=== PATIENT | female | born 1975 | race Caucasian/White ===

== ENCOUNTER 2017-01-11 09:33 | Emergency (ER) | payer OTHER ==
[2017-01-11 09:47] VITALS: RESP 18; TEMP 98
[2017-01-11 09:56] LABS: COLOR YELLOW; LEUKOCYTE ESTERASE,URINE 2+ (NEGATIVE); NITRITE,URINE NEGATIVE (NEGATIVE)
[2017-01-11 10:08] LABS: BACTERIA 1+ /hpf (NONE SEEN); RBC,URINE >182 /hpf (0-3); WBC,URINE >182 /hpf (0-3)
[2017-01-11] MEDS ORDERED: ONDANSETRON 4 MG/2 ML VIAL IVP ONE (10:24)
[2017-01-11] MEDS ORDERED: NS 1,000 ML IV ONE (10:24)
[2017-01-11] MEDS ORDERED: fentaNYL 100 MCG/2 ML INJ IVP ONE (10:24)
--- NOTE | 2017-01-11 10:24 | EDPHY ---
H & P Stated Complaint: c/o UTI s/S since thur- today Rt sided flank pain Time Seen by Provider: 01/11/17 09:58 HPI/ROS: CHIEF COMPLAINT: Flank pain and urinary symptoms HISTORY OF PRESENT ILLNESS: 41-year-old female with history of kidney stones presents reporting that she has been feeling unwell for about a week. She has had pain in her right flank as well as chills and some nausea. 2 days ago the patient developed discomfort when she urinates. Patient has had no radiation of her flank pain into the groin or lower abdomen. No documented fever. No noted hematuria. Nausea but no vomiting. No cold or cough symptoms. No diarrhea. No headache or lightheadedness. REVIEW OF SYSTEMS: Aside from elements discussed in the HPI, a comprehensive 10-point review of systems was reviewed and is negative. PAST MEDICAL HISTORY: Kidney stones, endometrial ablation, chronic hoarse voice secondary to vocal cord dysfunction SOCIAL HISTORY: Nonsmoker. . VITAL SIGNS Reviewed by me. GENERAL: Well-developed, well-nourished, restless in the bed. HEENT: Atraumatic. Eyes: No icterus, no injection. Mouth: moist mucous membranes. No erythema or lesions. Neck: supple with no adenopathy. LUNGS: Clear to auscultation bilaterally, no wheezes, rhonchi or rales. CARDIAC: Regular rate and rhythm, no rubs, murmurs or gallops. ABDOMEN: Soft, nontender, nondistended, bowel sounds normal. BACK: Mild right CVA tenderness. EXTREMITIES: No trauma. No edema. Range of motion is normal throughout. NEURO: Alert and oriented, grossly nonfocal. SKIN: Warm and dry, no rash. PSYCHIATRIC: Normal mentation, no agitation. - Personal History Current Tetanus Diphtheria and Acellular Pertussis (TDAP): Yes - Medical/Surgical History Hx Asthma: No Hx Chronic Respiratory Disease: No Hx Diabetes: No Hx Cardiac Disease: No Hx Renal Disease: No Hx Cirrhosis: No Hx Alcoholism: No Hx HIV/AIDS: No Hx Splenectomy or Spleen Trauma: No Other PMH: ORTHO SURGERY, 2 C-SECTIONS,2 HERNIAS, endometrial ablation/ amenorrhea for 8 years, kideny stones with infection - Social History Smoking Status: Never smoked Constitutional: Initial Vital Signs Temperature (C) 36.6 C 01/11/17 09:45 Heart Rate 68 01/11/17 09:45 Respiratory Rate 18 01/11/17 09:45 Blood Pressure 134/89 H 01/11/17 09:45 O2 Sat (%) 97 01/11/17 09:45 O2 Delivery Mode Room Air Allergies/Adverse Reactions: No Known Allergies Allergy (Verified 06/17/16 08:16) Home Medications: Medication Instructions Recorded Ritalin 10mg (RX) 05/24/14 Cephalexin [Keflex] 500 mg PO TID #21 cap 01/11/17 Hydrocodone/APAP 5/325 [Pigeon 1 tab PO Q6H PRN #10 tab 01/11/17 5/325 (RX)] Medical Decision Making - Diagnostics Imaging Results: Imaging Impressions Abdomen/Pelvis CT 01/11/17 11:24 Impression: Negative non-contrast CT examination of the urinary system. Results called to Dr. Stacy at 12:12 PM. Attention: This CT examination is specifically designed to evaluate patients who are clinically suspected of having acute obstructive uropathy. This examination does not use radiographic contrast, and as such, provides only a limited evaluation of the abdomen, pelvis and retroperitoneum. If there is further clinical suspicion for pathological conditions other than obstructive uropathy, a complete CT evaluation of the abdomen and pelvis utilizing intravenous, oral, and rectal contrast should be considered. Imaging: Discussed imaging studies w/ physically impaired teacher Radiologist ED Course/Re-evaluation: 41-year-old female with history of kidney stones presenting with right flank pain for several days now associated with lower urinary tract symptoms. Urinalysis demonstrates significant white cells and red cells. She appears relatively uncomfortable on examination. She has had nausea but no vomiting. Chills but no fever. IV was established in the patient received pain medications as well as ceftriaxone. Patient has a normal white count, lactic acid which is normal. Chemistries which were normal. Review of the patient's records demonstrates she has not had a CT scan since 2014. Patient underwent a CT scan to further evaluate for possible complications of a kidney stone. Today her CT scan demonstrates no stones in the right kidney. No hydronephrosis. Patient was feeling better upon reexamination. She will be discharged to be treated as pyelonephritis with flank pain. There is a possibility that her pain earlier in the week was a kidney stone which was passing. Patient understands importance of taking Keflex as directed. She was also given a short prescription for hydrocodone to use as needed for more severe pain instructed to use ibuprofen on a regular basis. Differential Diagnosis: Differential diagnosis of the patient's flank pain was considered including but not limited to musculoskeletal causes, kidney stone, pyelonephritis, shingles, and intra-abdominal causes such as diverticulitis and appendicitis. - Data Points Laboratory Results: Laboratory Results 01/11/17 10:30 01/11/17 10:30 01/11/17 01/11/17 01/11/17 10:30 10:30 10:30 WBC 6.57 10^3/uL 10^3/uL (3.80-9.50) RBC 5.57 10^6/uL H 10^6/uL (4.18-5.33) Hgb 15.9 g/dL g/dL (12.6-16.3) Hct 48.3 % H % (38.0-47.0) MCV 86.7 fL fL (81.5-99.8) MCH 28.5 pg pg (27.9-34.1) MCHC 32.9 g/dL g/dL (32.4-36.7) RDW 13.6 % % (11.5-15.2) Plt Count 258 10^3/uL 10^3/uL (150-400) MPV 9.2 fL fL (8.7-11.7) Neut % (Auto) 68.7 % % (39.3-74.2) Lymph % (Auto) 21.0 % % (15.0-45.0) Clare % (Auto) 8.4 % % (4.5-13.0) Eos % (Auto) 1.1 % % (0.6-7.6) Baso % (Auto) 0.6 % % (0.3-1.7) Nucleat RBC Rel Count 0.0 % % (0.0-0.2) Absolute Neuts (auto) 4.52 10^3/uL 10^3/uL (1.70-6.50) Absolute Lymphs (auto) 1.38 10^3/uL 10^3/uL (1.00-3.00) Absolute Monos (auto) 0.55 10^3/uL 10^3/uL (0.30-0.80) Absolute Eos (auto) 0.07 10^3/uL 10^3/uL (0.03-0.40) Absolute Basos (auto) 0.04 10^3/uL 10^3/uL (0.02-0.10) Absolute Nucleated RBC 0.00 10^3/uL 10^3/uL (0-0.01) Immature Gran % 0.2 % % (0.0-1.1) Immature Gran # 0.01 10^3/uL 10^3/uL (0.00-0.10) VBG Lactic Acid 1.1 mmol/L mmol/L (0.7-2.1) Sodium 143 mEq/L mEq/L (134-144) Potassium 4.6 mEq/L mEq/L (3.5-5.2) Chloride 102 mEq/L mEq/L (97-110) Carbon Dioxide 25 mEq/l mEq/l (22-31) Anion Gap 16 mEq/L mEq/L (8-16) BUN 24 mg/dL H mg/dL (7-23) Creatinine 0.9 mg/dL mg/dL (0.6-1.0) Estimated GFR > 60 Glucose 92 mg/dL mg/dL (70-100) Calcium 9.5 mg/dL mg/dL (8.5-10.4) Urine Color Urine Appearance Urine pH Ur Specific [place] Urine Protein Urine Ketones Urine Blood Urine Nitrate Urine Bilirubin Urine Urobilinogen Ur Leukocyte Esterase Urine RBC Urine WBC Ur Epithelial Cells Urine Bacteria Urine Glucose 01/11/17 09:50 WBC RBC Hgb Hct MCV MCH MCHC RDW Plt Count MPV Neut % (Auto) Lymph % (Auto) Clare % (Auto) Eos % (Auto) Baso % (Auto) Nucleat RBC Rel Count Absolute Neuts (auto) Absolute Lymphs (auto) Absolute Monos (auto) Absolute Eos (auto) Absolute Basos (auto) Absolute Nucleated RBC Immature Gran % Immature Gran # VBG Lactic Acid Sodium Potassium Chloride Carbon Dioxide Anion Gap BUN Creatinine Estimated GFR Glucose Calcium Urine Color YELLOW Urine Appearance CLOUDY Urine pH 7.0 (5.0-7.5) Ur Specific [place] 1.020 (1.002-1.030) Urine Protein TRACE H (NEGATIVE) Urine Ketones NEGATIVE (NEGATIVE) Urine Blood 2+ H (NEGATIVE) Urine Nitrate NEGATIVE (NEGATIVE) Urine Bilirubin NEGATIVE (NEGATIVE) Urine Urobilinogen 1.0 EU EU (0.2-1.0) Ur Leukocyte Esterase 2+ H (NEGATIVE) Urine RBC >182 /hpf H /hpf (0-3) Urine WBC >182 /hpf H /hpf (0-3) Ur Epithelial Cells 2+ /lpf H /lpf (NONE-1+) Urine Bacteria 1+ /hpf H /hpf (NONE SEEN) Urine Glucose NEGATIVE (NEGATIVE) Medications Given: Discontinued Medications Fentanyl (Sublimaze) 50 mcg IVP EDNOW ONE Stop: 01/11/17 10:25 Last Admin: 01/11/17 10:49 Dose: 50 mcg Ceftriaxone Sodium 1 gm/ (Sodium Chloride) 100 mls @ 200 mls/hr IV EDNOW ONE PRN Reason: Protocol Stop: 01/11/17 10:49 Last Admin: 01/11/17 10:35 Dose: 100 mls Sodium Chloride (Ns) 1,000 mls @ 0 mls/hr IV ONCE ONE PRN Reason: Wide Open Stop: 01/11/17 10:25 Last Admin: 01/11/17 10:36 Dose: 1,000 mls Ketorolac Tromethamine (Toradol) 15 mg IVP EDNOW ONE Stop: 01/11/17 11:22 Last Admin: 01/11/17 11:41 Dose: 15 mg Ondansetron HCl (Zofran) 4 mg IVP EDNOW ONE Stop: 01/11/17 10:25 Last Admin: 01/11/17 10:51 Dose: 4 mg Departure - Departure Disposition: Home, Routine, Self-Care Clinical Impression: Acute pyelonephritis, Flank pain, acute Condition: Good Instructions: Urinary Tract Infection in Women (ED), Kidney Infection (ED), Flank Pain (ED) Additional Instructions: Please take your antibiotics as directed. 500 mg by mouth 3 times a day for 7 days. Take ibuprofen 600 mg every 6-8 hours as needed for moderate pain. This will also help with inflammation. You may use P[place]on as needed for more severe pain. This is a narcotic. Use with caution. Follow up with her primary care physician for recheck next week if you're not significantly improved. Return to the emergency department if you continued to have severe pain, develops fevers, vomiting, or other concerns. Referrals: TEODORO VALDIVIA [Primary Care Provider] - As per Instructions Prescriptions: Cephalexin [Keflex] 500 mg PO TID #21 cap Hydrocodone/APAP 5/325 [[place] 5/325 (RX)] 1 tab PO Q6H PRN #10 tab PRN Reason: Pain
[2017-01-11 10:40] LABS: % IMMATURE GRANULYOCYTES 0.2 % (0.0-1.1); ABSOLUTE IMMATURE GRANULOCYTES 0.01 10^3/uL (0.00-0.10); ADD DIFF? NO; ADD MORPH? NO; ADD SCAN? NO; ATYPICAL LYMPHOCYTE FLAG 0 (0-99); FRAGMENT RBC FLAG 0 (0-99); HEMATOCRIT 48.3 % (38.0-47.0); HEMOGLOBIN 15.9 g/dL (12.6-16.3); LEFT SHIFT FLG 0 (0-99); LIPEMIA HEMOLYSIS FLAG 80 (0-99); MEAN CELL HEMOGLOBIN 28.5 pg (27.9-34.1); MEAN CELL HEMOGLOBIN CONCENTR. 32.9 g/dL (32.4-36.7); MEAN CELL VOLUME 86.7 fL (81.5-99.8); MEAN PLATELET VOLUME 9.2 fL (8.7-11.7); PLATELET CLUMPS FLAG 10 (0-99); PLATELET COUNT 258 10^3/uL (150-400); RED BLOOD CELL COUNT 5.57 10^6/uL (4.18-5.33); RED CELL DISTRIBUTION WIDTH 13.6 % (11.5-15.2)
[2017-01-11 10:52] LABS: CHLORIDE 102 mEq/L (97-110); POTASSIUM 4.6 mEq/L (3.5-5.2); SODIUM 143 mEq/L (134-144)
[2017-01-11 11:07] LABS: CALCIUM 9.5 mg/dL (8.5-10.4); CARBON DIOXIDE 25 mEq/l (22-31); CREATININE 0.9 mg/dL (0.6-1.0); GLOMERULAR FILTRATION RATE > 60; GLUCOSE 92 mg/dL (70-100)
[2017-01-11 11:09] LABS: ANION GAP 16 mEq/L (8-16)
[2017-01-11] MEDS ORDERED: KETOROLAC 30 MG/1 ML SDV IVP ONE (11:21)
[2017-01-11] MEDS ORDERED: HYDROmorphONE/DILAUDID 1 MG/ML SYR IVP ONE (11:24)
[2017-01-11 12:20] VITALS: BP 110/62; PULSE 74; O2SAT 94
== END 2017-01-11 12:19 | disposition home or self-care (01) ==
LOC: CED 09:33
DX: N10 Acute pyelonephritis (principal); B96.89 Other specified bacterial agents as the cause of diseases classified elsewhere
CPT/HCPCS: 74176-PO; 80048-PO; 81003-PO; 81015-PO; 83605-PO; 85025-PO; 96374; J0696; J1170; J2405; J3010